=== PATIENT | female | born 1935 | race Two or more races ===

== ENCOUNTER 2019-08-12 19:57 | Inpatient (IN) | payer MEDICARE, OTHER ==
[~2019-08-12] VITALS: Ht 160 cm; Wt 63.5 kg
--- NOTE | 2019-08-12 20:26 | NUR ---
PT CAME IN BIB EMS FROM [facility] C/O SHORTNESS OF BREATH. PER EMS REPORT, PATIENT HAD BG 166 AND DID NOT SPEAK WITH EMS, AND PT WAS ORIGINALLY HERE FOR PSYCH EVAL BUT WAS HYPERVENTILATING. AAOX0. AWAKE AND ALERT TO VERBAL AND PAINFUL STIMLULI. PT IS BREATHING AT 99% OXYGEN
[2019-08-12] MEDS ORDERED: ALPRAZOLAM 0.5 MG TABLET PO ONE (20:30)
[2019-08-12] MEDS ORDERED: ALPRAZOLAM 0.5 MG TABLET ONE (20:31)
--- NOTE | 2019-08-12 21:18 | NUR ---
DAUGHTERS AT BEDSIDE
[2019-08-12] MEDS ORDERED: LORAZEPAM INJ 2 MG/ML VIAL ONE (21:25)
[2019-08-12] MEDS ORDERED: LORAZEPAM INJ 2 MG/ML VIAL IM ONE (21:30)
--- NOTE | 2019-08-12 22:16 | NUR ---
CALLED FOR TELE BED
--- NOTE | 2019-08-12 22:26 | NUR ---
GIVEN BED 307-2
--- NOTE | 2019-08-12 22:36 | NUR ---
BLOOD DRAWN AND SENT TO LAB
[2019-08-12 22:41] LABS: BASOPHILS # (AUTO) 0.1 /CMM (0.0-0.2); BASOPHILS % (AUTO) 0.7 % (0.0-2.0); EOSINOPHILS % (AUTO) 2.2 % (0.0-6.0); HEMATOCRIT 30 % (33-45); LYMPHOCYTES # (AUTO) 2.5 /CMM (0.8-4.8); LYMPHOCYTES % (AUTO) 32.4 % (20.0-44.0); MEAN CORPUSCULAR HGB CONC 33 g/dl (31.0-36.0); MEAN CORPUSCULAR VOLUME 88 fL (82-100); MONOCYTES # (AUTO) 0.8 /CMM (0.1-1.30); MONOCYTES % (AUTO) 10.9 % (2.0-12.0); NEUTROPHILS # (AUTO) 4.1 /CMM (1.8-8.9); NEUTROPHILS % (AUTO) 53.8 % (43.0-81.0); PLATELET COUNT (AUTO) 238 /CMM (150-450); RED BLOOD CELL COUNT(AUTO) 3.42 MIL/uL (4.0-5.2); WHITE BLOOD COUNT (AUTO) 7.7 K/uL (4.3-11.0)
[2019-08-12 22:51] LABS: CALCIUM, SERUM 9.1 mg/dL (8.5-10.1); CREATININE 1.2 mg/dL (0.6-1.3); POTASSIUM 3.9 mmol/L (3.5-5.1)
--- NOTE | 2019-08-12 22:53 | NUR ---
report given to Sherman DELGADO for CHANELLE.
[2019-08-12 23:04] LABS: ALBUMIN 3.1 g/dL (3.4-5.0); BILIRUBIN,DIRECT 0.1 mg/dL (0.0-0.2); BILIRUBIN,TOTAL 0.4 mg/dL (0.2-1.0); TOTAL PROTEIN, SERUM 7.1 g/dL (6.4-8.2)
[2019-08-12 23:25] VITALS: BP 136/66
[2019-08-12] MEDS ORDERED: HYDROCODONE/APAP 5/325MG 1 EACH TABLET PO PRN (23:30)
[2019-08-12] MEDS ORDERED: MAG HYDROX/AL HYDROX/SIMETH 30 ML UDC PO PRN (23:30)
[2019-08-12] MEDS ORDERED: INSULIN REGULAR, HUMAN 100 UNIT/ML 3 ML VIAL SQ PRN (23:30)
[2019-08-12] MEDS ORDERED: DEXTROSE 50%-WATER 50 ML DISP.SYRIN IV PRN (23:30)
[2019-08-12] MEDS ORDERED: Z GUARD REMEDY 2 OZ OINT TP PRN (23:30)
[2019-08-12] MEDS ORDERED: TEMAZEPAM 15 MG CAPSULE PO PRN (23:30)
[2019-08-12] MEDS ORDERED: ONDANSETRON HCL/PF 4 MG/2 ML VIAL IVP PRN (23:30)
[2019-08-12] MEDS ORDERED: MORPHINE SULFATE INJ 2 MG/ML DISP.SYRIN IV PRN (23:30)
[2019-08-12] MEDS ORDERED: ALPRAZOLAM 0.25 MG TABLET PO PRN (23:30)
[2019-08-12] MEDS ORDERED: ACETAMINOPHEN 325 MG TABLET PO PRN (23:30)
[2019-08-12] MEDS ORDERED: MAGNESIUM HYDROXIDE 30 ML UDC PO PRN (23:30)
[2019-08-13] VITALS: BP 136/66
--- NOTE | 2019-08-13 00:35 | NUR ---
RN ADMITTING NOTES Pt ARRIVED TO THE FLOOR VIA ER GURDAMIAN. WITH DAUGHTERS AT BEDSIDE. Pt WAS GIVEN ATIVAN & XANAX IN THE ER DUE TO SEVERE ANXIETY THAT WAS CAUSING HYPERVENTILATION. WHEN Pt ARRIVED TO THE FLOOR Pt WAS ASLEEP AND LETHARGIC; REACTED TO TOUCH & PAIN. PER FAMILY'S REPORT, Pt IS ABLE TO SPEAK & UNDERSTAND IN ENGLISH ONLY, AND HAS EARLY ONSET DEMENTIA. IV ACCESS ON RAC #20G, SL. SAFETY MEASURES IN PLACE. BED LOW, LOCKED, HOB ELEVATED, SIDE RAILS UP, CALL LIGHT AND BEDSIDE TABLE WITHIN REACH. WILL CONTINUE TO MONITOR Pt's CONDITION AND SAFETY THROUGHOUT THE NIGHT.
[2019-08-13] MEDS: FUROSEMIDE 40 MG/4 ML VIAL IV SCH ×2 (01:11→08:27)
--- NOTE | 2019-08-13 01:51 | NUR ---
SANDY NOTES SPOKE WITH GLORIA JASMINE TO CLARIFY ORDER OF MARTINS INSERTION; PLACING INDWELLING MARTINS CATHETER IS OK SINCE Pt IS INCONTINENT AND IS TAKING LASIX. SPOKE WITH Pt's DAUGHTER MARCE ON THE PHONE, SHE GAVE PERMISSION TO ALLOW FOR A MARTINS CATHETER TO BE PLACED. WILL CARRY OUT ORDER. Addendum: 08/13/19 at 0651 by CAIT COX RN COLLECTED URINE SAMPLE
[2019-08-13 04:46] LABS: BASOPHILS % (AUTO) 0.6 % (0.0-2.0); EOSINOPHILS % (AUTO) 3.4 % (0.0-6.0); HEMATOCRIT 32 % (33-45); HEMOGLOBIN 10.8 g/dL (11.5-14.8); LYMPHOCYTES # (AUTO) 2.7 /CMM (0.8-4.8); LYMPHOCYTES % (AUTO) 37.5 % (20.0-44.0); MEAN CORPUSCULAR HGB CONC 34 g/dl (31.0-36.0); MEAN CORPUSCULAR VOLUME 89 fL (82-100); MONOCYTES # (AUTO) 0.8 /CMM (0.1-1.30); NEUTROPHILS # (AUTO) 3.4 /CMM (1.8-8.9); NEUTROPHILS % (AUTO) 47.5 % (43.0-81.0); PLATELET COUNT (AUTO) 232 /CMM (150-450); RED BLOOD CELL COUNT(AUTO) 3.57 MIL/uL (4.0-5.2); WHITE BLOOD COUNT (AUTO) 7.2 K/uL (4.3-11.0)
[2019-08-13 05:07] LABS: ALANINE AMINOTRANSFERASE 13 U/L (12-78); ALBUMIN 2.9 g/dL (3.4-5.0); ALKALINE PHOSPHATASE 32 U/L (46-116); ASPARTATE AMINOTRANSFERASE 12 U/L (15-37); BILIRUBIN,TOTAL 0.5 mg/dL (0.2-1.0); CALCIUM, SERUM 8.8 mg/dL (8.5-10.1); CARBON DIOXIDE 26 mmol/L (21-32); CHLORIDE 105 mmol/L (98-107); CREATININE 1.1 mg/dL (0.6-1.3); GLUCOSE 99 mg/dL (74-106); MAGNESIUM 1.6 mg/dL (1.8-2.4); PHOSPHORUS 4.5 mg/dL (2.5-4.9); POTASSIUM 3.3 mmol/L (3.5-5.1); SODIUM SERUM 139 mmol/L (136-145); TOTAL PROTEIN, SERUM 6.7 g/dL (6.4-8.2); UREA NITROGEN, BLOOD 20 mg/dL (7-18)
[2019-08-13 05:14] LABS: CHOLESTEROL 126 mg/dL (<200); HDL CHOLESTEROL 35 mg/dL (40-60); LDL 76 mg/dL (0-99); THYROID STIMULATING HORMONE 15.635 uIU/mL (0.358-3.74); TRIGLYCERIDES 99 mg/dL (30-150)
--- NOTE | 2019-08-13 06:51 | NUR ---
RN CLOSING NOTES NO SIGNIFICANT CHANGES IN Pt's CONDITION. NO S/S OF ACUTE DISTRESS OR SOB NOTED DURING THE NIGHT. ALL NEEDS MET AND ATTENDED TO. SAFETY MEASURES IN PLACE. Pt IS RESTING IN BED, WITH UNLABORED RESPIRATIONS & EQUAL CHEST RISE AND FALL. ENDORSED TO DAYSHIFT RN FOR Pt's CHANELLE.
[2019-08-13] MEDS ORDERED: PANTOPRAZOLE 40 MG TABLET.DR PO SCH (07:30)
--- NOTE | 2019-08-13 07:30 | NUR ---
MS/RN OPENING NOTE Patient is resting in bed, A/Ox1, lethargic, arousable to pain. Breathing is even and unlabored, no SOB noted, saturating 100% on RA. Tele monitor A-fib 54, delgado catheter noted, IV line in the RAc #20 s/l is clean and patent. Bed is in lowest position, side rails x3 in upright position, call light is within reach, safety fall and aspiration precautions enforced. Will continue with plan of care.
[2019-08-13] MEDS ORDERED: LEVO112T5 PO (07:32)
[2019-08-13] MEDS ORDERED: FURO-145 PO (07:32)
[2019-08-13] MEDS ORDERED: DOCU-141 PO (07:32)
[2019-08-13] MEDS ORDERED: SENN-168 PO (07:32)
[2019-08-13] MEDS ORDERED: APIX2.5T PO (07:32)
[2019-08-13] MEDS ORDERED: ATOR10TA PO (07:32)
[2019-08-13] MEDS ORDERED: CALC-1274 PO (07:32)
[2019-08-13] MEDS ORDERED: DEXT15DR6 EACHEYE (07:32)
[2019-08-13] MEDS ORDERED: CYCL5.5D3 OP (07:32)
[2019-08-13] MEDS ORDERED: MIRT15TA7 PO (07:32)
[2019-08-13] MEDS ORDERED: RISP0.5T5 PO (07:32)
[2019-08-13] MEDS ORDERED: DIGO125T PO (07:32)
[2019-08-13] MEDS ORDERED: MAGN400T8 PO (07:32)
[2019-08-13] MEDS ORDERED: BISA-79 PO (07:32)
[2019-08-13] MEDS ORDERED: METF-442 PO (07:32)
[2019-08-13] MEDS ORDERED: METO25TA6 PO (07:32)
[2019-08-13] MEDS ORDERED: SPIR25TA6 PO (07:32)
[2019-08-13] MEDS ORDERED: ASCO500C18 PO (07:32)
[2019-08-13] MEDS ORDERED: NA P133E RC (07:32)
[2019-08-13] MEDS ORDERED: DIVA125C2 PO ×2 (07:32)
[2019-08-13] MEDS ORDERED: CRAN425C6 PO (07:32)
[2019-08-13] MEDS ORDERED: NUT.237L28 PO (07:32)
[2019-08-13] MEDS ORDERED: ACET325C7 PO (07:32)
[2019-08-13 08:00] VITALS: BP 100/54
[2019-08-13] MEDS: BLOOD SUGAR DIAGNOSTIC 1 EACH STRIP IN SCH ×2 (08:13→12:23)
[2019-08-13] MEDS ORDERED: CALC-7 PO (08:15)
[2019-08-13] MEDS ORDERED: MAGN400O6 PO (08:15)
[2019-08-13] MEDS ORDERED: ACET-2605 PO (08:15)
[2019-08-13] MEDS ORDERED: ACET-868 PO (08:15)
[2019-08-13] MEDS ORDERED: BISA10SU11 RC (08:15)
[2019-08-13] MEDS ORDERED: RISP0.2515 PO (08:15)
[2019-08-13] MEDS ORDERED: CYCL30DR EACHEYE (08:15)
[2019-08-13] MEDS ORDERED: SENN-291 PO (08:15)
[2019-08-13] MEDS ORDERED: GLUC1KIT IM (08:15)
[2019-08-13] MEDS ORDERED: MAG30ORA PO (08:15)
[2019-08-13] MEDS ORDERED: POLY15DR40 EACHEYE (08:15)
[2019-08-13] MEDS: POTASSIUM CHLORIDE 20 MEQ TAB.PRT.SR PO SCH ×2 (08:27→09:41)
[2019-08-13] MEDS: Magnesium 1GM/D5W 100ML PREMIX 100 ML IV SCH ×2 (08:28→09:40)
[2019-08-13] MEDS ORDERED: ENOXAPARIN SODIUM 40 MG/0.4 ML DISP.SYRIN SQ SCH (09:00)
[2019-08-13 09:54] LABS: APPEARANCE,URINE CLEAR (CLEAR); BILIRUBIN,URINE NEGATIVE (NEGATIVE); BLOOD, URINE TRACE-INTA Ery/uL (NEGATIVE); KETONES,URINE NEGATIVE (NEGATIVE); LEUKOCYTE ESTERASE ,URINE NEGATIVE (NEGATIVE); NITRITE, URINE NEGATIVE (NEGATIVE); PROTEIN,URINE NEGATIVE (NEGATIVE); UGLUCOSE NEGATIVE (NEGATIVE); UROBILINOGEN,URINE 0.2 EU/dL (0.2)
[2019-08-13 10:03] LABS: COLOR,URINE STRAW (YELLOW)
[2019-08-13 10:16] LABS: BACTERIA,URINE Few /HPF (None Seen); WBC,URINE 0-2 /HPF (0-3)
[2019-08-13 10:17] LABS: SQUAMOUS EPITHELIAL CELL,UR Rare /HPF (None Seen)
[2019-08-13] MEDS: POTASSIUM CL. PREMIX PERIPHER. 50 ML IV SCH ×2 (11:27→12:23)
[2019-08-13] MEDS ORDERED: FURO-144 PO (13:58)
--- NOTE | 2019-08-13 16:17 | NUR ---
MS/BRUSH HOLDER INSPECTOR NOTE Patient is medically cleared for discharge to [facility] per Dr. Bustillos. A/O x1, showing no signs of acute distress or SOB, saturating 100% on RA. Vital signs 127/56, IA 79, T 98.4, RR 18. Skin assessed. Skin is intact. IV removed, ID band removed. Patient does not have any belongings. Report given to Kendra DELGADO in [facility]. Patient kept clean and dry, all patient needs met, all due meds given. Family has been notified of discharge to [facility].
== END 2019-08-13 16:10 | DRG 291 ==
LOC: ER 20:05 → TELE 22:34 → MED 08-13 10:11
PROVIDERS: ADMIT Nurse Practitioner Acute Care; ATTEND Family Medicine
DX: I11.0 Hypertensive heart disease with heart failure (principal); G93.41 Metabolic encephalopathy; N17.0 Acute kidney failure with tubular necrosis; E44.1 Mild protein-calorie malnutrition; F03.91 Unspecified dementia, unspecified severity, with behavioral disturbance; E03.9 Hypothyroidism, unspecified; E83.42 Hypomagnesemia; E87.6 Hypokalemia; Z66 Do not resuscitate; Z95.1 Presence of aortocoronary bypass graft; I25.10 Atherosclerotic heart disease of native coronary artery without angina pectoris; E88.09 Other disorders of plasma-protein metabolism, not elsewhere classified; D63.8 Anemia in other chronic diseases classified elsewhere; I48.91 Unspecified atrial fibrillation; Z68.24 Body mass index [BMI] 24.0-24.9, adult; Z79.84 Long term (current) use of oral hypoglycemic drugs; F41.9 Anxiety disorder, unspecified; E11.9 Type 2 diabetes mellitus without complications; I50.33 Acute on chronic diastolic (congestive) heart failure
CPT/HCPCS: 36415; 71045-TC; 80048-TC; 80053-TC; 80061-TC; 80076-TC; 81000-TC; 82962-TC; 83735-TC; 83880; 84100-TC; 84443-TC; 84484-TC; 85025-TC; 85730-TC; 87081-TC; 87086-TC; 93307-TC; 97112-TC; 97530-TC; G0378; J1650; J1815; J1940; J2060; J3475; J3480; J7050

== ENCOUNTER 2019-08-13 16:45 | Inpatient (IN) | payer MEDICARE, OTHER ==
[~2019-08-13] VITALS: Ht 157.5 cm; Wt 61.7 kg
--- NOTE | 2019-08-13 16:00 | NUR ---
NURSING ADMISSION NOTE: PT WAS ADMITTED TODAY FROM [facility] AT 1600. PT WAS BROUGHT TO THE UNIT VIA HOSPITAL BED. PT IS ON 5150 GD, PER HOLD "PSYCH EVALUATION REQUESTED FOR THIS 83 Y/O FEMALE WHO WAS SENT FROM [facility] FOR AGITATION AND ANXIETY. SHE HAS A H/O MENTAL HEALTH ISSUES. WHEN INTERVIEW FACE TO FACE AT BEDSIDE, CORNEL WAS LETHARGIC AND ANXIOUS, PER WELDING MACHINE OPERATOR [employer] #[id number], PT ADMITS TO BEING DEPRESSED AND ANXIOUS. SHE IS TRYING TO TAKE OUT HER IV. HER DAUGHTER CHRISTIAN REPORTS THAT HER MOTHER HAS BEEN DEPRESSED SINCE HER 8 MONTHS AGO. SHE HAS BEEN TAKING RISPERDAL AND DEPAKOTE BUT HER DAUGHTER REPORTS THAT THE MEDICATION IS NOT WORKING AND THAT IT MAKES HER FORGETFUL AND AGITATED. SHE WAS AGITATED WITH STAFF AT [facility] AND BECAME VIOLENT AND UNMANAGEABLE AT THE FACILITY. SHE IS NO ABLE TO SIGN IN VOLUNTARY". UPON FACE TO FACE, PT IS A&OX1, CONFUSED, DISORIENTED, DISORGANIZED, CALM, COOPERATIVE, SLEEPING BUT EASILY AROUSABLE, DENIES SI/HI AT THIS TIME. NO S/S OF ANY DISTRESS NOTED. NO C/O PAIN OR ANY DISCOMFORT. VS: 130/64, 98, 95%RA, 18, 97.8, 0/10 PAIN. SKIN INTACT EXCEPT FOR A BRUISE TO LEFT HAND, PICTURES TAKEN AND PLACED IN THE CHART. DR ACUÑA HAS BEEN NOTIFIED OF ADMISSION WITH ADMISSION ORDERS GIVEN WELL. DR. PRICE HAS BEEN NOTIFIED OF ADMISSION AND MED RECON. WILL CONTINUE TO MONITOR Q15 MINS FOR SAFETY AND BEHAVIOR.
[~2019-08-13 16:45] MED LIST: ACET-2605 PO; ACET-868 PO; ACET325C7 PO; APIX2.5T PO; ASCO500C18 PO; ATOR10TA PO; BISA-79 PO; BISA10SU11 RC; CALC-1274 PO; CALC-7 PO; CRAN425C6 PO; CYCL30DR EACHEYE; CYCL5.5D3 OP; DEXT15DR6 EACHEYE; DIGO125T PO; DIVA125C2 PO; DOCU-141 PO; FURO-144 PO; FURO-145 PO; GLUC1KIT IM; LEVO112T5 PO; MAG30ORA PO; MAGN400O6 PO; MAGN400T8 PO; METF-442 PO; METO25TA6 PO; MIRT15TA7 PO; NA P133E RC; NUT.237L28 PO; POLY15DR40 EACHEYE; RISP0.2515 PO; RISP0.5T5 PO; SENN-168 PO; SENN-291 PO; SPIR25TA6 PO
[2019-08-13] MEDS ORDERED: MAGNESIUM HYDROXIDE 30 ML UDC PO PRN ×2 (17:30→21:00)
[2019-08-13] MEDS ORDERED: ZOLPIDEM TARTRATE 5 MG TABLET PO PRN (17:30)
[2019-08-13] MEDS ORDERED: DEXTROSE 50%-WATER 50 ML DISP.SYRIN IV PRN (17:30)
[2019-08-13] MEDS ORDERED: MAG HYDROX/AL HYDROX/SIMETH 30 ML UDC PO PRN (17:30)
[2019-08-13] MEDS ORDERED: BLOOD SUGAR DIAGNOSTIC 1 EACH STRIP IN ONE (17:30)
[2019-08-13] MEDS: BLOOD SUGAR DIAGNOSTIC 1 EACH STRIP IN SCH ×2 (17:51→22:38)
[2019-08-13 20:00] VITALS: BP 115/63
--- NOTE | 2019-08-13 20:00 | NUR ---
PATIENT RESTING IN BED COMFORTABLY,EASILY AGITATED , PARANOID PT.IS COOPERATIVE AT THIS TIME, DEPRESSED, . NO AGITATION NOTED.ENCOURAGED FOR VERBALIZATION OF FEELINGS. SAFETY PRECAUTIONS IMPLEMENTED. WILL CONTINUE TO MONITOR Q15MIN ROUNDS FOR SAFETY AND BEHAVIOR.
[2019-08-13] MEDS ORDERED: NA PHOS,M-B/NA PHOS,DI-BA 1 EA ENEMA RC PRN (21:00)
[2019-08-13] MEDS ORDERED: BISACODYL SUPP (10 MG) 10 MG/SUPP.RECT SUPP.RECT RC PRN (21:00)
[2019-08-13] MEDS ORDERED: SENNOSIDES/DOCUSATE SODIUM 1 UDTAB TABLET PO SCH (22:00)
[2019-08-13] MEDS: ATORVASTATIN 10 MG TABLET PO SCH (22:13)
[2019-08-13 23:06] VITALS: BP 115/69
--- NOTE | 2019-08-14 07:21 | NUR ---
RN NOTES : PT. RESETING IN HER BED, NO ACUTE DISTRESS NOTED , DENIED ANY DISCOMFORT AT THIS TIME , IN DURING SHIFT NO BEHAVIOR PROBLEMS NOTED , ENDORSE TO DAY NURSE FOR CONTINUIYT OF CARE.
[2019-08-14] MEDS ORDERED: Z GUARD REMEDY 2 OZ OINT TP PRN (07:30)
[2019-08-14 07:59] LABS: BILIRUBIN,TOTAL 0.6 mg/dL (0.2-1.0); CALCIUM, SERUM 8.8 mg/dL (8.5-10.1); CREATININE 0.9 mg/dL (0.6-1.3); POTASSIUM 3.5 mmol/L (3.5-5.1); TOTAL PROTEIN, SERUM 7.1 g/dL (6.4-8.2)
[2019-08-14 08:00] VITALS: BP 100/57
[2019-08-14 08:07] LABS: CHOLESTEROL 143 mg/dL (<200); HDL CHOLESTEROL 35 mg/dL (40-60); LDL 90 mg/dL (0-99); TRIGLYCERIDES 124 mg/dL (30-150)
[2019-08-14] MEDS: BLOOD SUGAR DIAGNOSTIC 1 EACH STRIP IN SCH ×4 (08:09→22:05)
--- NOTE | 2019-08-14 08:09 | NUR ---
GPS/RN ACCUCHECK WITH WX=223. NO INSULIN COVERAGE GIVEN PT NOT EATING.
[2019-08-14] MEDS ORDERED: POLYVINYL ALCOHOL 15 ML BOTTLE EACHEYE PRN (08:30)
[2019-08-14] MEDS: FUROSEMIDE 20 MG TABLET PO SCH (08:55)
[2019-08-14] MEDS: SPIRONOLACTONE 25 MG TABLET PO SCH (08:55)
[2019-08-14] MEDS: METOPROLOL TARTRATE 25 MG TABLET PO SCH ×2 (08:56→17:00)
[2019-08-14] MEDS ORDERED: Z GUARD REMEDY 2 OZ OINT TP SCH (09:00)
[2019-08-14] MEDS ORDERED: Medication Not On Formulary EA (Cyclosporine (Restasis) 1 DROP) EACHEYE SCH (09:00)
[2019-08-14] MEDS ORDERED: Medication Not On Formulary EA (Cranberry Extract (Cranberry) 425 MG) PO SCH (09:00)
[2019-08-14] MEDS: GLUCERNA SHAKE 237 ML CAN PO SCH (09:00)
--- NOTE | 2019-08-14 09:09 | NUR ---
FACILITY CONTACT: SW contacted [facility] Address: [address] [place] [address] and spoke with Catie, clinical project coordinator who stated pt is able to return once stable for discharge.
[2019-08-14] MEDS: DIGOXIN 0.125 MG TABLET PO SCH (09:24)
[2019-08-14] MEDS: ACETAMINOPHEN 325 MG TABLET PO SCH (09:24)
[2019-08-14] MEDS: CALCIUM CARB 250MG /VITAMIN D 1 UDTAB PO SCH (09:24)
[2019-08-14] MEDS: LEVOTHYROXINE SODIUM 112 MCG TABLET PO SCH (09:24)
[2019-08-14] MEDS: DOCUSATE SODIUM 100 MG CAPSULE PO SCH ×2 (09:24→17:22)
[2019-08-14] MEDS: LORAZEPAM 0.5 MG TABLET PO PRN ×3 (09:25→18:51)
[2019-08-14] MEDS: ASCORBIC ACID 500 MG TABLET PO SCH (09:25)
[2019-08-14] MEDS: Z GUARD REMEDY 2 OZ OINT TP SCH (09:25)
[2019-08-14] MEDS: MAGNESIUM OXIDE 400 MG TABLET PO SCH ×2 (09:25→17:22)
[2019-08-14] MEDS: POLYVINYL ALCOHOL 15 ML BOTTLE EACHEYE SCH ×3 (09:26→17:19)
[2019-08-14] MEDS: APIXABAN 2.5 MG TABLET PO SCH ×2 (09:27→17:23)
--- NOTE | 2019-08-14 09:35 | NUR ---
FAMILY CONTACT: TOMMY contacted pts daughter Chante [phone] for collateral information, discharge and treatment planning. Daughter stated that pt has been living at [facility] Address: [address] [place] [address] for the past 8 months after pts . Daughter states that pt was hospitalized due to an infection when and she not able to leave the hospital. Per daughter, pt became agitated and her Dementia was exacerbated by this event. Daughter states that pt was then transferred to the SNF and pt declined rapidly. She states that while at the SNF pt has been given Risperdal and Depakote prasanna pt has deteriorated drastically, she states that pt stopped talking, walking, and is more agitated. Daughter is concerned and is requesting MD call her to discuss medications. SW informed her that she will inform psychiatrist.
[2019-08-14] MEDS ORDERED: SENNOSIDES 8.6 MG TABLET PO SCH (10:00)
--- NOTE | 2019-08-14 11:45 | NUR ---
INITIAL DISCHARGE PLAN: Per Daughter Chante [phone] she wishes for pt to return to [facility] Address: [address] [place] [address] . TOMMY contacted Catie curriculum development coordinator who confirmed pt is able to return once stable for discharge. TOMMY will help form a safe and proper discharge in collaboration with .
--- NOTE | 2019-08-14 15:05 | NUR ---
GROUP NOTE: SW encouraged pt to attend group on this present day discussing "discharge planning." Pt was asleep and was not easily aroused. Pt was restless all day and was given medication for her anxiety.
[2019-08-14 16:00] VITALS: BP 110/63
--- NOTE | 2019-08-14 16:01 | NUR ---
GPS/RN NO INSULIN COVERAGE FOR LUNCH PT REFUSED TO EAT.
--- NOTE | 2019-08-14 18:51 | NUR ---
GPS/RN PT GIVEN ATIVAN 0.5MG PO FOR AGITATION
--- NOTE | 2019-08-14 19:59 | NUR ---
GPS/BRASS FINISHER NOTES: NOTICED PT. GRIMACES IN PAIN ON TOUCH TO RIGHT HAND. FAMILY AT BEDSIDE AND REQUEST FOR XRAY. DR. MURILLO. WAITING ON RETURN CALL.
--- NOTE | 2019-08-14 20:00 | NUR ---
GPS/DECKHAND SPONGE BOAT NOTES: DR. PARIKH RETURNED CALL AND TO PLACED ORDER FOR XRAY TO RIGHT HAND. ORDER NOTED AND CARRIED OUT.
[2019-08-14 20:22] VITALS: BP 103/80
--- NOTE | 2019-08-14 21:30 | NUR ---
GPS/NURSING NOTES: PT. IN BED RESTING. NO DISTRESS OR AGITATION NOTED. RESTLESS AT TIMES. REDIRECTED. COOPERATIVE. SAFETY ENVIRONMENT OBSERVED AT ALL TIMES. WILL CONTINUE TO MONITOR Q 15 MIN FOR SAFETY AND BEHAVIOR.
[2019-08-14] MEDS: SENNOSIDES 8.6 MG TABLET PO SCH (22:05)
[2019-08-14] MEDS: QUETIAPINE FUMARATE 25 MG TABLET PO SCH (22:05)
[2019-08-14] MEDS: ATORVASTATIN 10 MG TABLET PO SCH (22:05)
[2019-08-14] MEDS: INSULIN REGULAR, HUMAN 100 UNIT/ML 3 ML VIAL SQ PRN (22:07)
[2019-08-15 08:00] VITALS: BP 101/60
[2019-08-15] MEDS: BLOOD SUGAR DIAGNOSTIC 1 EACH STRIP IN SCH ×4 (08:01→21:50)
[2019-08-15] MEDS: LEVOTHYROXINE SODIUM 112 MCG TABLET PO SCH (08:03)
[2019-08-15] MEDS: DOCUSATE SODIUM 100 MG CAPSULE PO SCH ×2 (08:03→16:41)
[2019-08-15] MEDS: ASCORBIC ACID 500 MG TABLET PO SCH (08:05)
[2019-08-15] MEDS: CALCIUM CARB 250MG /VITAMIN D 1 UDTAB PO SCH (08:05)
[2019-08-15] MEDS: LORAZEPAM 0.5 MG TABLET PO PRN ×2 (08:05→22:56)
[2019-08-15] MEDS: APIXABAN 2.5 MG TABLET PO SCH ×2 (08:05→16:42)
[2019-08-15] MEDS: MAGNESIUM OXIDE 400 MG TABLET PO SCH ×2 (08:05→16:41)
[2019-08-15] MEDS: DIGOXIN 0.125 MG TABLET PO SCH (08:05)
[2019-08-15] MEDS: FUROSEMIDE 20 MG TABLET PO SCH (08:06)
[2019-08-15] MEDS: SPIRONOLACTONE 25 MG TABLET PO SCH (08:06)
[2019-08-15] MEDS: POLYVINYL ALCOHOL 15 ML BOTTLE EACHEYE SCH ×3 (08:06→16:39)
[2019-08-15] MEDS: ESCITALOPRAM OXALATE (10 MG) 10 MG TABLET PO SCH (08:08)
[2019-08-15] MEDS: METOPROLOL TARTRATE 25 MG TABLET PO SCH ×2 (08:08→16:39)
[2019-08-15] MEDS: ACETAMINOPHEN 325 MG TABLET PO SCH (08:33)
[2019-08-15] MEDS: Z GUARD REMEDY 2 OZ OINT TP SCH (09:39)
--- NOTE | 2019-08-15 12:45 | NUR ---
GPS/RN DNR ORDERS RECEIVED FROM DR. KIRAN WITNESSED BY ANJALI SIMPSON RN. MADE AWARE OF ABNORMAL ECG. NEW ORDERS RECEIVED AND CARRIED OUT
[2019-08-15] MEDS: INSULIN REGULAR, HUMAN 100 UNIT/ML 3 ML VIAL SQ PRN ×2 (12:56→21:55)
[2019-08-15] MEDS: GLUCERNA SHAKE 237 ML CAN PO SCH (13:18)
[2019-08-15 16:00] VITALS: BP 103/64
--- NOTE | 2019-08-15 19:30 | NUR ---
GPS OPENING NOTE: PATIENT IN BED RESTING COMFORTABLY, IN NO APPARENT DISTRESS NOTED. ALERT AND ORIENTED X1, PATIENT REMAINS CONFUSED AND ANXIOUS. REORIENTATION PROVIDED. SAFETY PRECAUTIONS IMPLEMENTED. BED ALARM ON AND IN LOCKED POSITION. WILL CONTINUE TO MONITOR FOR PATIENT'S SAFETY.
[2019-08-15 20:00] VITALS: BP_SYST 130; BP_SYST 138; BP_DIAS 69; BP_DIAS 91
[2019-08-15] MEDS: SENNOSIDES 8.6 MG TABLET PO SCH (21:29)
[2019-08-15] MEDS: QUETIAPINE FUMARATE 25 MG TABLET PO SCH (21:29)
[2019-08-15] MEDS: ATORVASTATIN 10 MG TABLET PO SCH (21:29)
--- NOTE | 2019-08-15 22:56 | NUR ---
GPS NURSING NOTE: AGITATION ATIVAN 0.5MG PO GIVEN FOR AGITATION. WILL CONTINUE TO MONITOR FOR PT'S SAFETY.
--- NOTE | 2019-08-16 06:18 | NUR ---
GPS RN CLOSING NOTE: PATIENT IN BED ASLEEP, AROUSES EASILY. NO ACUTE DISTRESS NOTED. PATIENT REMAINS CONFUSED. REORIENTATION PROVIDED. NO AGITATION NOTED. SAFETY PRECAUTIONS IMPLEMENTED. BED ALARM ON AND IN LOCKED POSITION. WILL CONTINUE TO MONITOR FOR PT'S SAFETY.
--- NOTE | 2019-08-16 06:19 | NUR ---
GPS RN CLOSING NOTE: PATIENT IN BED ASLEEP, AROUSES EASILY. NO ACUTE DISTRESS NOTED. DENIES PAIN OR DISCOMFORT. NO AGITATION NOTED. DENIES SI/HI/AVH AT THIS TIME. SAFETY PRECAUTIONS IMPLEMENTED. BED ALARM ON AND IN LOCKED POSITION. WILL CONTINUE TO MONITOR FOR PT'S SAFETY.
[2019-08-16 08:00] VITALS: BP 139/80
[2019-08-16] MEDS: BLOOD SUGAR DIAGNOSTIC 1 EACH STRIP IN SCH ×4 (08:21→21:16)
[2019-08-16] MEDS: MAGNESIUM OXIDE 400 MG TABLET PO SCH ×2 (08:22→17:23)
[2019-08-16] MEDS: LEVOTHYROXINE SODIUM 112 MCG TABLET PO SCH (08:22)
[2019-08-16] MEDS: ESCITALOPRAM OXALATE (10 MG) 10 MG TABLET PO SCH (08:22)
[2019-08-16] MEDS: LORAZEPAM 0.5 MG TABLET PO PRN ×2 (08:22→22:30)
[2019-08-16] MEDS: DOCUSATE SODIUM 100 MG CAPSULE PO SCH ×2 (08:22→17:22)
[2019-08-16] MEDS: CALCIUM CARB 250MG /VITAMIN D 1 UDTAB PO SCH (08:23)
[2019-08-16] MEDS: FUROSEMIDE 20 MG TABLET PO SCH (08:23)
[2019-08-16] MEDS: ASCORBIC ACID 500 MG TABLET PO SCH (08:23)
[2019-08-16] MEDS: METOPROLOL TARTRATE 25 MG TABLET PO SCH ×2 (08:23→17:22)
[2019-08-16] MEDS: SPIRONOLACTONE 25 MG TABLET PO SCH (08:23)
[2019-08-16] MEDS: ACETAMINOPHEN 325 MG TABLET PO SCH (08:23)
[2019-08-16] MEDS: APIXABAN 2.5 MG TABLET PO SCH ×2 (08:25→17:30)
[2019-08-16] MEDS: GLUCERNA SHAKE 237 ML CAN PO SCH (08:25)
[2019-08-16] MEDS: POLYVINYL ALCOHOL 15 ML BOTTLE EACHEYE SCH ×3 (08:26→17:19)
[2019-08-16] MEDS: Z GUARD REMEDY 2 OZ OINT TP SCH (08:26)
[2019-08-16] MEDS: [UNRECOGNIZED DRUG - OTHER] TP SCH (13:01)
[2019-08-16 16:02] VITALS: BP 137/56
[2019-08-16 16:33] LABS: BASOPHILS % (AUTO) 0.2 % (0.0-2.0); EOSINOPHILS % (AUTO) 0.1 % (0.0-6.0); HEMATOCRIT 30 % (33-45); LYMPHOCYTES # (AUTO) 1.1 /CMM (0.8-4.8); LYMPHOCYTES % (AUTO) 10.6 % (20.0-44.0); MEAN CORPUSCULAR HGB CONC 33 g/dl (31.0-36.0); MEAN CORPUSCULAR VOLUME 89 fL (82-100); MONOCYTES # (AUTO) 1.3 /CMM (0.1-1.30); MONOCYTES % (AUTO) 12.3 % (2.0-12.0); NEUTROPHILS # (AUTO) 8.3 /CMM (1.8-8.9); NEUTROPHILS % (AUTO) 76.8 % (43.0-81.0); PLATELET COUNT (AUTO) 213 /CMM (150-450); RED BLOOD CELL COUNT(AUTO) 3.41 MIL/uL (4.0-5.2); WHITE BLOOD COUNT (AUTO) 10.8 K/uL (4.3-11.0)
[2019-08-16 17:02] LABS: ALBUMIN 2.7 g/dL (3.4-5.0); BILIRUBIN,TOTAL 0.6 mg/dL (0.2-1.0); CALCIUM, SERUM 9.1 mg/dL (8.5-10.1); CREATININE 1.1 mg/dL (0.6-1.3); POTASSIUM 4.1 mmol/L (3.5-5.1); TOTAL PROTEIN, SERUM 7.2 g/dL (6.4-8.2)
[2019-08-16] MEDS: INSULIN REGULAR, HUMAN 100 UNIT/ML 3 ML VIAL SQ PRN (17:42)
--- NOTE | 2019-08-16 19:30 | NUR ---
GPS OPENING NOTE: PATIENT IN BED RESTING COMFORTABLY, IN NO APPARENT DISTRESS NOTED. ALERT AND ORIENTED X1, PATIENT REMAINS CONFUSED, ANXIOUS. REORIENTATION PROVIDED. REPOSITIONED FOR COMFORT. SAFETY PRECAUTIONS IMPLEMENTED. BED ALARM ON AND IN LOCKED POSITION. WILL CONTINUE TO MONITOR FOR PATIENT'S SAFETY.
[2019-08-16 20:00] VITALS: BP 118/65
[2019-08-16 20:04] VITALS: BP 118/65
[2019-08-16] MEDS: QUETIAPINE FUMARATE 25 MG TABLET PO SCH (21:07)
[2019-08-16] MEDS: SENNOSIDES 8.6 MG TABLET PO SCH (21:07)
[2019-08-16] MEDS: ATORVASTATIN 10 MG TABLET PO SCH (21:07)
--- NOTE | 2019-08-16 22:30 | NUR ---
GPS NURSING NOTE: ANXIETY PATIENT IS ANXIOUS AND RESTLESS. ATIVAN 0.5MG PO GIVEN. WILL CONTINUE TO MONITOR FOR PT'S SAFETY.
[2019-08-17] MEDS: ACETAMINOPHEN 325 MG TABLET PO PRN (02:04)
[2019-08-17] MEDS: BLOOD SUGAR DIAGNOSTIC 1 EACH STRIP IN SCH ×4 (07:30→22:47)
[2019-08-17 08:00] VITALS: BP 95/55
[2019-08-17] MEDS: METOPROLOL TARTRATE 25 MG TABLET PO SCH ×2 (09:00→17:49)
[2019-08-17] MEDS: SPIRONOLACTONE 25 MG TABLET PO SCH (09:12)
[2019-08-17] MEDS: DOCUSATE SODIUM 100 MG CAPSULE PO SCH ×2 (09:12→17:49)
[2019-08-17] MEDS: ASCORBIC ACID 500 MG TABLET PO SCH (09:12)
[2019-08-17] MEDS: FUROSEMIDE 20 MG TABLET PO SCH (09:12)
[2019-08-17] MEDS: DIGOXIN 0.125 MG TABLET PO SCH (09:14)
[2019-08-17] MEDS: ESCITALOPRAM OXALATE (10 MG) 10 MG TABLET PO SCH (09:15)
[2019-08-17] MEDS: CALCIUM CARB 250MG /VITAMIN D 1 UDTAB PO SCH (09:15)
[2019-08-17] MEDS: ACETAMINOPHEN 325 MG TABLET PO SCH (09:15)
[2019-08-17] MEDS: APIXABAN 2.5 MG TABLET PO SCH ×2 (09:17→17:50)
[2019-08-17] MEDS: GLUCERNA SHAKE 237 ML CAN PO SCH (09:18)
[2019-08-17] MEDS: LEVOTHYROXINE SODIUM 112 MCG TABLET PO SCH (09:18)
[2019-08-17] MEDS: POLYVINYL ALCOHOL 15 ML BOTTLE EACHEYE SCH ×3 (09:19→17:50)
[2019-08-17] MEDS: Z GUARD REMEDY 2 OZ OINT TP SCH (09:20)
[2019-08-17] MEDS: [UNRECOGNIZED DRUG - OTHER] TP SCH (09:20)
[2019-08-17] MEDS: MAGNESIUM OXIDE 400 MG TABLET PO SCH ×2 (09:25→17:50)
[2019-08-17 16:00] VITALS: BP 127/63
--- NOTE | 2019-08-17 18:24 | NUR ---
R-CO: CALL DR ROJAS'S OFFICE LEFT A MESSAGE THAT SHE HAS A CONSULT REGARDING PRIYA Sheffield
[2019-08-17 20:10] VITALS: BP 129/69
[2019-08-17] MEDS: ATORVASTATIN 10 MG TABLET PO SCH (22:05)
[2019-08-17] MEDS: SENNOSIDES 8.6 MG TABLET PO SCH (22:06)
[2019-08-17] MEDS: QUETIAPINE FUMARATE 25 MG TABLET PO SCH (22:06)
[2019-08-17] MEDS: LORAZEPAM 0.5 MG TABLET PO PRN (22:38)
[2019-08-17] MEDS: INSULIN REGULAR, HUMAN 100 UNIT/ML 3 ML VIAL SQ PRN (23:10)
--- NOTE | 2019-08-18 04:46 | NUR ---
SKIN CHEK DONE, NO NEW SKIN PROBLEMS NOTED. PICTURES TAKEN AND PLACED IN CHART. PT CALM AND COOPERATIVE. WILL CONTINUE TO MONITOR AND ENDORSE TO AM NURSE.
[2019-08-18] MEDS: BLOOD SUGAR DIAGNOSTIC 1 EACH STRIP IN SCH ×4 (07:23→22:35)
[2019-08-18 08:00] VITALS: BP 118/62
[2019-08-18] MEDS: DIGOXIN 0.125 MG TABLET PO SCH (08:20)
[2019-08-18] MEDS: SPIRONOLACTONE 25 MG TABLET PO SCH (08:20)
[2019-08-18] MEDS: ESCITALOPRAM OXALATE (10 MG) 10 MG TABLET PO SCH (08:20)
[2019-08-18] MEDS: FUROSEMIDE 20 MG TABLET PO SCH (08:20)
[2019-08-18] MEDS: ACETAMINOPHEN 325 MG TABLET PO SCH (08:20)
[2019-08-18] MEDS: ASCORBIC ACID 500 MG TABLET PO SCH (08:21)
[2019-08-18] MEDS: METOPROLOL TARTRATE 25 MG TABLET PO SCH ×2 (08:21→16:23)
[2019-08-18] MEDS: CALCIUM CARB 250MG /VITAMIN D 1 UDTAB PO SCH (08:21)
[2019-08-18] MEDS: MAGNESIUM OXIDE 400 MG TABLET PO SCH ×2 (08:21→16:23)
[2019-08-18] MEDS: DOCUSATE SODIUM 100 MG CAPSULE PO SCH ×2 (08:21→16:23)
[2019-08-18] MEDS: LEVOTHYROXINE SODIUM 112 MCG TABLET PO SCH (08:21)
[2019-08-18] MEDS: GLUCERNA SHAKE 237 ML CAN PO SCH (08:22)
[2019-08-18] MEDS: APIXABAN 2.5 MG TABLET PO SCH ×2 (08:22→16:23)
[2019-08-18] MEDS: POLYVINYL ALCOHOL 15 ML BOTTLE EACHEYE SCH ×3 (09:23→16:32)
[2019-08-18] MEDS: [UNRECOGNIZED DRUG - OTHER] TP SCH (09:23)
[2019-08-18] MEDS: Z GUARD REMEDY 2 OZ OINT TP SCH (09:23)
--- NOTE | 2019-08-18 09:50 | NUR ---
GPS NURSING NOTE: PATIENT IS AOX1. UNABLE TO VERBALIZE. RESTING IN BED. REGULAR RATE AND RHYTHM FOR RESPIRATIONS. NO SIGNS OF DISTRESS NOTED. NEEDS ATTENDED TO. ATE 25% OF BREAKFAST AND IS MEDICATION COMPLIANT. SAFETY PRECAUTIONS ASSESSED. WILL CONTINUE TO MONITOR Q15 FOR SAFETY, MOOD AND BEHAVIOR.
--- NOTE | 2019-08-18 15:23 | NUR ---
GROUP NOTE: SW encouraged pt to attend group on this present day discussing "discharge planning." Pt refused to attend, and was irritable when SW encouraged pt to attend. Pt is not appropriate for group at this time. Pt is cognitively impaired and unable to engage conversation. Pt does not answer questions and maintain eye contact. Addendum: 08/18/19 at 1544 by DOMINGO SANDERS ERROR
--- NOTE | 2019-08-18 15:44 | NUR ---
GROUP NOTE: SW encouraged pt to attend group on this present day discussing "mood-regulation." Pt refused to attend, and was irritable when SW encouraged pt to attend. Pt is not appropriate for group at this time. Pt is cognitively impaired and unable to engage conversation. Pt does not answer questions and maintain eye contact.
[2019-08-18 16:00] VITALS: BP 147/74
[2019-08-18] MEDS: INSULIN REGULAR, HUMAN 100 UNIT/ML 3 ML VIAL SQ PRN (18:01)
--- NOTE | 2019-08-18 20:00 | NUR ---
GPS RN OPENING NOTE: RECEIVED PATIENT ASLEEP IN BED, ARAUSABLE TO VERBAL AND TACTILE STIMULI, ALERT AND ORIENTED X 1, CALM, DEPRESSED MOOD, CONFUSED, ANXIOUS, DISORGANIZED, NO AGITATION NOTED, DENIES SI/HI, NO SOB, NO ACUTE DISTRESS, BREATHING EVEN AND UNLABORED, NO S/S OF PAIN AND DISCOMFORT, WILL CONTINUE TO MONITOR Q15 MINS FOR SAFETY
[2019-08-18 20:54] VITALS: BP 128/88
[2019-08-18] MEDS ORDERED: QUETIAPINE FUMARATE 25 MG TABLET PO SCH (22:00)
[2019-08-18] MEDS: SENNOSIDES 8.6 MG TABLET PO SCH (22:34)
[2019-08-18] MEDS: ATORVASTATIN 10 MG TABLET PO SCH (22:34)
[2019-08-19] MEDS: BLOOD SUGAR DIAGNOSTIC 1 EACH STRIP IN SCH ×4 (07:30→22:14)
[2019-08-19 08:00] VITALS: BP 114/67
[2019-08-19] MEDS: ESCITALOPRAM OXALATE (10 MG) 10 MG TABLET PO SCH (09:22)
[2019-08-19] MEDS: DIGOXIN 0.125 MG TABLET PO SCH (09:24)
[2019-08-19] MEDS: DOCUSATE SODIUM 100 MG CAPSULE PO SCH ×2 (09:24→17:47)
[2019-08-19] MEDS: ASCORBIC ACID 500 MG TABLET PO SCH (09:25)
[2019-08-19] MEDS: METOPROLOL TARTRATE 25 MG TABLET PO SCH ×2 (09:25→17:48)
[2019-08-19] MEDS: CALCIUM CARB 250MG /VITAMIN D 1 UDTAB PO SCH (09:25)
[2019-08-19] MEDS: MAGNESIUM OXIDE 400 MG TABLET PO SCH ×2 (09:25→17:48)
[2019-08-19] MEDS: SPIRONOLACTONE 25 MG TABLET PO SCH (09:25)
[2019-08-19] MEDS: APIXABAN 2.5 MG TABLET PO SCH ×2 (09:26→17:49)
[2019-08-19] MEDS: FUROSEMIDE 20 MG TABLET PO SCH (09:27)
[2019-08-19] MEDS: LEVOTHYROXINE SODIUM 112 MCG TABLET PO SCH (09:28)
[2019-08-19] MEDS: POLYVINYL ALCOHOL 15 ML BOTTLE EACHEYE SCH ×3 (09:28→17:49)
[2019-08-19] MEDS: GLUCERNA SHAKE 237 ML CAN PO SCH (09:29)
[2019-08-19] MEDS: Z GUARD REMEDY 2 OZ OINT TP SCH (09:30)
[2019-08-19] MEDS: [UNRECOGNIZED DRUG - OTHER] TP SCH (09:30)
[2019-08-19] MEDS: ACETAMINOPHEN 325 MG TABLET PO SCH (09:45)
[2019-08-19 16:00] VITALS: BP 118/69
--- NOTE | 2019-08-19 21:40 | NUR ---
GPS RN OPENING NOTE: PATIENT AWAKE, CONFUSED, DEPRESSED MOOD, DISORGANIZED, NO AGITATION AT THIS TIME, NO SOB, NO ACUTE DISTRESS, BREATHING EVEN AND UNLABORED, NO S/S OF PAIN AND DISCOMFORT, KEPT CLEAN, DRY AND COMFORTABLE, WILL CONTINUE TO MONITOR Q15 MINS FOR SAFETY
[2019-08-19] MEDS: SENNOSIDES 8.6 MG TABLET PO SCH (22:14)
[2019-08-19] MEDS: QUETIAPINE FUMARATE 25 MG TABLET PO SCH (22:14)
[2019-08-19] MEDS: ATORVASTATIN 10 MG TABLET PO SCH (22:14)
[2019-08-19 23:24] VITALS: BP 149/82
[2019-08-20] MEDS: LEVOTHYROXINE SODIUM 112 MCG TABLET PO SCH (07:30)
[2019-08-20] MEDS: BLOOD SUGAR DIAGNOSTIC 1 EACH STRIP IN SCH ×5 (07:57→22:48)
[2019-08-20] MEDS: INSULIN REGULAR, HUMAN 100 UNIT/ML 3 ML VIAL SQ PRN ×4 (07:58→22:51)
[2019-08-20 08:00] VITALS: BP 100/77
[2019-08-20] MEDS: Z GUARD REMEDY 2 OZ OINT TP SCH (08:28)
[2019-08-20] MEDS: METOPROLOL TARTRATE 25 MG TABLET PO SCH ×2 (09:00→16:41)
[2019-08-20] MEDS: MAGNESIUM OXIDE 400 MG TABLET PO SCH ×2 (09:06→16:52)
[2019-08-20] MEDS: DOCUSATE SODIUM 100 MG CAPSULE PO SCH ×2 (09:07→16:41)
[2019-08-20] MEDS: SPIRONOLACTONE 25 MG TABLET PO SCH (09:07)
[2019-08-20] MEDS: FUROSEMIDE 20 MG TABLET PO SCH (09:07)
[2019-08-20] MEDS: ASCORBIC ACID 500 MG TABLET PO SCH (09:07)
[2019-08-20] MEDS: POLYVINYL ALCOHOL 15 ML BOTTLE EACHEYE SCH ×3 (09:08→16:40)
[2019-08-20] MEDS: ACETAMINOPHEN 325 MG TABLET PO SCH (09:12)
[2019-08-20] MEDS: CALCIUM CARB 250MG /VITAMIN D 1 UDTAB PO SCH (09:12)
[2019-08-20] MEDS: GLUCERNA SHAKE 237 ML CAN PO SCH (09:13)
[2019-08-20] MEDS: [UNRECOGNIZED DRUG - OTHER] TP SCH (09:13)
[2019-08-20] MEDS: APIXABAN 2.5 MG TABLET PO SCH ×2 (09:14→16:41)
--- NOTE | 2019-08-20 09:56 | NUR ---
Probable Cause Hearing Notification: SW contacted pts daughter Chante ([phone]) and informed her via voicemail that the pt is having a hearing today and explained what the hearing entails and the possible outcomes.
--- NOTE | 2019-08-20 13:50 | NUR ---
Group Note: SW invited the patient to attend group therapy on 08/20/2019 to discuss what they would like to see change as a result of their stay in [facility]. SW assessed the pt.'s ability to participate in therapy. The patient does not have the capacity to participate in group therapy as she has Dementia and is currently experiencing symptoms of severe confusion and agitation.
[2019-08-20 16:00] VITALS: BP 135/60
[2019-08-20] MEDS: MAG HYDROX/AL HYDROX/SIMETH 30 ML UDC PO PRN (18:27)
[2019-08-20] MEDS: LORAZEPAM 0.5 MG TABLET PO PRN (18:50)
[2019-08-20] MEDS: ACETAMINOPHEN 325 MG TABLET PO PRN (20:27)
[2019-08-20] MEDS: ATORVASTATIN 10 MG TABLET PO SCH (22:24)
[2019-08-20] MEDS: SENNOSIDES 8.6 MG TABLET PO SCH (22:24)
[2019-08-20] MEDS: QUETIAPINE FUMARATE 25 MG TABLET PO SCH (22:24)
[2019-08-21] MEDS: LORAZEPAM 0.5 MG TABLET PO PRN ×3 (01:16→21:22)
[2019-08-21] MEDS: ACETAMINOPHEN 325 MG TABLET PO PRN (02:41)
[2019-08-21] MEDS: BLOOD SUGAR DIAGNOSTIC 1 EACH STRIP IN SCH ×4 (07:35→22:00)
[2019-08-21 08:00] VITALS: BP 124/99
[2019-08-21] MEDS: LEVOTHYROXINE SODIUM 112 MCG TABLET PO SCH (08:20)
[2019-08-21] MEDS: ACETAMINOPHEN 325 MG TABLET PO SCH (09:02)
[2019-08-21] MEDS: FUROSEMIDE 20 MG TABLET PO SCH (09:02)
[2019-08-21] MEDS: MAGNESIUM OXIDE 400 MG TABLET PO SCH ×2 (09:02→17:00)
[2019-08-21] MEDS: SPIRONOLACTONE 25 MG TABLET PO SCH (09:02)
[2019-08-21] MEDS: CALCIUM CARB 250MG /VITAMIN D 1 UDTAB PO SCH (09:02)
[2019-08-21] MEDS: ASCORBIC ACID 500 MG TABLET PO SCH (09:02)
[2019-08-21] MEDS: METOPROLOL TARTRATE 25 MG TABLET PO SCH ×2 (09:02→17:00)
[2019-08-21] MEDS: DOCUSATE SODIUM 100 MG CAPSULE PO SCH ×2 (09:02→17:00)
[2019-08-21] MEDS: DIGOXIN 0.125 MG TABLET PO SCH (09:02)
[2019-08-21] MEDS: APIXABAN 2.5 MG TABLET PO SCH ×2 (09:05→17:00)
[2019-08-21] MEDS: POLYVINYL ALCOHOL 15 ML BOTTLE EACHEYE SCH ×3 (09:14→17:00)
[2019-08-21] MEDS: GLUCERNA SHAKE 237 ML CAN PO SCH (09:14)
[2019-08-21] MEDS: [UNRECOGNIZED DRUG - OTHER] TP SCH (09:15)
--- NOTE | 2019-08-21 09:26 | NUR ---
GPS RN OPENING NOTE: PATIENT IS AOX1. UNABLE TO VERBALIZE. RESTING IN BED WITH 2 SIDE RAILS UP. PATIENT ATE 25% FOR BREAKFAST AND TOOK HER MEDICATIONS. PATIENT HAS LOUD RESPIRATIONS AND BREATHES THROUGH HER MOUTH. SWALLOWING/ASPIRATIONS PRECAUTIONS IN PLACE. NEEDS ATTENDED TO. SAFETY PRECAUTIONS IN PLACE.WILL CONTINUE TO MONITOR Q15 FOR SAFETY, MOOD AND BEHAVIOR.
[2019-08-21] MEDS: Z GUARD REMEDY 2 OZ OINT TP SCH (09:41)
[2019-08-21] MEDS: QUETIAPINE FUMARATE 25 MG TABLET PO SCH ×3 (11:42→21:22)
[2019-08-21 16:00] VITALS: BP 115/55
--- NOTE | 2019-08-21 18:08 | NUR ---
GPS RN NOTE: PATIENT IS SLEEPING, AND NOT EASILY AROUSABLE. PATIENT SLEPT FOR ONLY 3 HOURS LAST NIGHT. UNABLE TO COMPLETE MED PASS
[2019-08-21 20:05] VITALS: BP 105/62
[2019-08-21] MEDS: SENNOSIDES 8.6 MG TABLET PO SCH (21:22)
[2019-08-21] MEDS: ATORVASTATIN 10 MG TABLET PO SCH (21:22)
[2019-08-22] MEDS: LEVOTHYROXINE SODIUM 112 MCG TABLET PO SCH (07:30)
[2019-08-22 08:00] VITALS: BP 139/52
[2019-08-22] MEDS: BLOOD SUGAR DIAGNOSTIC 1 EACH STRIP IN SCH ×4 (08:04→22:05)
[2019-08-22] MEDS: ASCORBIC ACID 500 MG TABLET PO SCH (08:42)
[2019-08-22] MEDS: QUETIAPINE FUMARATE 25 MG TABLET PO SCH ×2 (08:43→16:32)
[2019-08-22] MEDS: ACETAMINOPHEN 325 MG TABLET PO SCH (08:44)
[2019-08-22] MEDS: SPIRONOLACTONE 25 MG TABLET PO SCH (08:44)
[2019-08-22] MEDS: DIGOXIN 0.125 MG TABLET PO SCH (08:45)
[2019-08-22] MEDS: CALCIUM CARB 250MG /VITAMIN D 1 UDTAB PO SCH (08:45)
[2019-08-22] MEDS: MAGNESIUM OXIDE 400 MG TABLET PO SCH ×2 (08:45→16:32)
[2019-08-22] MEDS: METOPROLOL TARTRATE 25 MG TABLET PO SCH ×2 (08:47→16:32)
[2019-08-22] MEDS: APIXABAN 2.5 MG TABLET PO SCH ×2 (08:52→16:33)
[2019-08-22] MEDS: FUROSEMIDE 20 MG TABLET PO SCH (08:54)
[2019-08-22] MEDS: [UNRECOGNIZED DRUG - OTHER] TP SCH (08:55)
[2019-08-22] MEDS: POLYVINYL ALCOHOL 15 ML BOTTLE EACHEYE SCH ×3 (08:55→16:36)
[2019-08-22] MEDS: DOCUSATE SODIUM 100 MG CAPSULE PO SCH ×2 (08:55→17:00)
[2019-08-22] MEDS: GLUCERNA SHAKE 237 ML CAN PO SCH (09:00)
[2019-08-22] MEDS: Z GUARD REMEDY 2 OZ OINT TP SCH (09:36)
[2019-08-22] MEDS: LORAZEPAM 0.5 MG TABLET PO PRN ×2 (12:23→23:33)
--- NOTE | 2019-08-22 15:57 | NUR ---
GROUP NOTE: SW encouraged pt to attend group on this present day discussing "suicidal ideation." Pt was asleep and was not easily aroused. Pt has Dementia and is mute. Pt is not appropriate for group.
[2019-08-22 16:00] VITALS: BP 156/99
[2019-08-22] MEDS: ACETAMINOPHEN 325 MG TABLET PO PRN (18:58)
[2019-08-22] MEDS: MAG HYDROX/AL HYDROX/SIMETH 30 ML UDC PO PRN (19:12)
[2019-08-22 20:19] VITALS: BP 126/62
[2019-08-22] MEDS: SENNOSIDES 8.6 MG TABLET PO SCH (21:04)
[2019-08-22] MEDS: ATORVASTATIN 10 MG TABLET PO SCH (21:04)
[2019-08-22] MEDS ORDERED: QUETIAPINE FUMARATE 25 MG TABLET PO SCH (22:00)
--- NOTE | 2019-08-22 23:34 | NUR ---
GPS NURSING NOTE: ANXIETY ADMINISTERED ATIVAN 0.5MG PO FOR ANXIETY. WILL CONTINUE TO MONITOR FOR PT'S SAFETY.
[2019-08-23] MEDS: ACETAMINOPHEN 325 MG TABLET PO PRN (03:10)
--- NOTE | 2019-08-23 07:30 | NUR ---
received pt. in am restless,no acute distress.vs stable.med compliant.alert and oriented x1.twisting about in bed,needing repositiong freq.
[2019-08-23 08:00] VITALS: BP 110/68
[2019-08-23] MEDS: BLOOD SUGAR DIAGNOSTIC 1 EACH STRIP IN SCH ×4 (08:47→22:12)
[2019-08-23] MEDS: METOPROLOL TARTRATE 25 MG TABLET PO SCH ×2 (09:00→17:00)
[2019-08-23] MEDS: SPIRONOLACTONE 25 MG TABLET PO SCH (09:00)
[2019-08-23] MEDS: CALCIUM CARB 250MG /VITAMIN D 1 UDTAB PO SCH (10:38)
[2019-08-23] MEDS: [UNRECOGNIZED DRUG - OTHER] TP SCH (10:38)
[2019-08-23] MEDS: QUETIAPINE FUMARATE 25 MG TABLET PO SCH ×2 (10:39→18:15)
[2019-08-23] MEDS: FUROSEMIDE 20 MG TABLET PO SCH (10:39)
[2019-08-23] MEDS: MAGNESIUM OXIDE 400 MG TABLET PO SCH ×2 (10:39→18:13)
[2019-08-23] MEDS: ASCORBIC ACID 500 MG TABLET PO SCH (10:39)
[2019-08-23] MEDS: DOCUSATE SODIUM 100 MG CAPSULE PO SCH ×2 (10:39→18:14)
[2019-08-23] MEDS: POLYVINYL ALCOHOL 15 ML BOTTLE EACHEYE SCH ×3 (10:40→18:16)
[2019-08-23] MEDS: GLUCERNA SHAKE 237 ML CAN PO SCH (10:41)
[2019-08-23] MEDS: APIXABAN 2.5 MG TABLET PO SCH ×2 (10:43→18:14)
--- NOTE | 2019-08-23 11:30 | NUR ---
rn in to rm.constantly repositioning pt.
[2019-08-23] MEDS: ACETAMINOPHEN 325 MG TABLET PO SCH (11:54)
[2019-08-23] MEDS: LEVOTHYROXINE SODIUM 112 MCG TABLET PO SCH (11:54)
[2019-08-23] MEDS: Z GUARD REMEDY 2 OZ OINT TP SCH (13:30)
[2019-08-23 16:00] VITALS: BP 100/64
--- NOTE | 2019-08-23 18:35 | NUR ---
dtr. calling often,given status report.
[2019-08-23 21:05] VITALS: BP 111/59
[2019-08-23] MEDS: ATORVASTATIN 10 MG TABLET PO SCH (22:04)
[2019-08-23] MEDS: SENNOSIDES 8.6 MG TABLET PO SCH (22:04)
[2019-08-23] MEDS: QUETIAPINE FUMARATE 100 MG TABLET PO SCH (22:04)
[2019-08-23] MEDS: INSULIN REGULAR, HUMAN 100 UNIT/ML 3 ML VIAL SQ PRN (22:13)
[2019-08-24] MEDS: BLOOD SUGAR DIAGNOSTIC 1 EACH STRIP IN SCH ×4 (07:40→22:08)
[2019-08-24 08:00] VITALS: BP 110/59
[2019-08-24] MEDS: CALCIUM CARB 250MG /VITAMIN D 1 UDTAB PO SCH (08:03)
[2019-08-24] MEDS: DOCUSATE SODIUM 100 MG CAPSULE PO SCH ×2 (08:03→16:01)
[2019-08-24] MEDS: ACETAMINOPHEN 325 MG TABLET PO SCH (08:03)
[2019-08-24] MEDS: MAGNESIUM OXIDE 400 MG TABLET PO SCH ×2 (08:03→16:02)
[2019-08-24] MEDS: ASCORBIC ACID 500 MG TABLET PO SCH (08:04)
[2019-08-24] MEDS: DIGOXIN 0.125 MG TABLET PO SCH (08:04)
[2019-08-24] MEDS: LEVOTHYROXINE SODIUM 112 MCG TABLET PO SCH (08:04)
[2019-08-24] MEDS: APIXABAN 2.5 MG TABLET PO SCH ×2 (08:04→16:03)
[2019-08-24] MEDS: QUETIAPINE FUMARATE 25 MG TABLET PO SCH ×2 (08:04→16:01)
[2019-08-24] MEDS: METOPROLOL TARTRATE 25 MG TABLET PO SCH ×2 (08:05→16:01)
[2019-08-24] MEDS: FUROSEMIDE 20 MG TABLET PO SCH (08:05)
[2019-08-24] MEDS: GLUCERNA SHAKE 237 ML CAN PO SCH (08:06)
[2019-08-24] MEDS: Z GUARD REMEDY 2 OZ OINT TP SCH (08:09)
[2019-08-24] MEDS: POLYVINYL ALCOHOL 15 ML BOTTLE EACHEYE SCH ×3 (08:09→16:25)
[2019-08-24] MEDS: [UNRECOGNIZED DRUG - OTHER] TP SCH (08:12)
[2019-08-24] MEDS: SPIRONOLACTONE 25 MG TABLET PO SCH (08:12)
--- NOTE | 2019-08-24 09:20 | NUR ---
GPS RN NOTE: PT. IN BED,AWAKE RESTING, MEDICATIONS COMPLIANT EAT BREAKFAST PT CONFUSED,VS STABLE,NO ACUTE DISTRESS COOPERATIVE,RESTLESS AT TIMES WILL MONITOR Q 15 MINUTES FOR SAFETY AND BEHAVIOR.
[2019-08-24 16:01] VITALS: BP 115/68
[2019-08-24 20:04] VITALS: BP 131/84
[2019-08-24] MEDS: QUETIAPINE FUMARATE 100 MG TABLET PO SCH (22:00)
[2019-08-24] MEDS: ATORVASTATIN 10 MG TABLET PO SCH (22:00)
[2019-08-24] MEDS: SENNOSIDES 8.6 MG TABLET PO SCH (22:00)
[2019-08-24] MEDS: INSULIN REGULAR, HUMAN 100 UNIT/ML 3 ML VIAL SQ PRN (22:19)
[2019-08-25] MEDS: LEVOTHYROXINE SODIUM 112 MCG TABLET PO SCH (07:30)
[2019-08-25 07:40] LABS: CALCIUM, SERUM 8.8 mg/dL (8.5-10.1); POTASSIUM 3.9 mmol/L (3.5-5.1)
[2019-08-25 08:00] VITALS: BP 119/64
[2019-08-25] MEDS: BLOOD SUGAR DIAGNOSTIC 1 EACH STRIP IN SCH ×4 (08:09→22:56)
[2019-08-25] MEDS: Z GUARD REMEDY 2 OZ OINT TP SCH (08:09)
[2019-08-25] MEDS: POLYVINYL ALCOHOL 15 ML BOTTLE EACHEYE SCH ×3 (08:09→17:37)
[2019-08-25] MEDS: [UNRECOGNIZED DRUG - OTHER] TP SCH (08:09)
[2019-08-25] MEDS: ASCORBIC ACID 500 MG TABLET PO SCH (08:38)
[2019-08-25] MEDS: DOCUSATE SODIUM 100 MG CAPSULE PO SCH ×2 (08:38→17:37)
[2019-08-25] MEDS: SPIRONOLACTONE 25 MG TABLET PO SCH (08:38)
[2019-08-25] MEDS: FUROSEMIDE 20 MG TABLET PO SCH (08:39)
[2019-08-25] MEDS: ACETAMINOPHEN 325 MG TABLET PO SCH (08:39)
[2019-08-25] MEDS: MAGNESIUM OXIDE 400 MG TABLET PO SCH ×2 (08:39→17:33)
[2019-08-25] MEDS: APIXABAN 2.5 MG TABLET PO SCH ×2 (08:40→17:34)
[2019-08-25] MEDS: QUETIAPINE FUMARATE 25 MG TABLET PO SCH ×2 (08:41→17:35)
[2019-08-25] MEDS: METOPROLOL TARTRATE 25 MG TABLET PO SCH ×2 (08:41→17:00)
[2019-08-25] MEDS: DIGOXIN 0.125 MG TABLET PO SCH (08:42)
[2019-08-25] MEDS: CALCIUM CARB 250MG /VITAMIN D 1 UDTAB PO SCH (08:42)
[2019-08-25] MEDS: GLUCERNA SHAKE 237 ML CAN PO SCH (08:46)
--- NOTE | 2019-08-25 10:27 | NUR ---
FACILITY CONTACT: TOMMY contacted [facility] Address: [address] [place] [address] and spoke with Catie, recruiter coordinator to inform her pt will be discharged tomorrow. Catie agreed and requested clinicals be faxed to . Addendum: 08/25/19 at 1037 by DOMINGO SANDERS Clinicals have been faxed on this present day.
[2019-08-25 16:00] VITALS: BP 104/52
[2019-08-25] MEDS: INSULIN REGULAR, HUMAN 100 UNIT/ML 3 ML VIAL SQ PRN ×2 (16:50→23:01)
[2019-08-25 20:46] VITALS: BP 110/65
[2019-08-25] MEDS: ATORVASTATIN 10 MG TABLET PO SCH (22:27)
[2019-08-25] MEDS: QUETIAPINE FUMARATE 100 MG TABLET PO SCH (22:27)
[2019-08-25] MEDS: SENNOSIDES 8.6 MG TABLET PO SCH (22:27)
[2019-08-25] MEDS: LORAZEPAM 0.5 MG TABLET PO PRN (22:57)
[2019-08-26] MEDS: BLOOD SUGAR DIAGNOSTIC 1 EACH STRIP IN SCH ×2 (07:19→12:31)
--- NOTE | 2019-08-26 07:20 | NUR ---
RN NOTE: ACCUCHECK 111 WITH NO SLIDING SCALE COVERAGE
[2019-08-26] MEDS: LEVOTHYROXINE SODIUM 112 MCG TABLET PO SCH (07:33)
[2019-08-26 08:00] VITALS: BP 144/67
[2019-08-26] MEDS: POLYVINYL ALCOHOL 15 ML BOTTLE EACHEYE SCH ×2 (09:22→12:50)
[2019-08-26] MEDS: SPIRONOLACTONE 25 MG TABLET PO SCH (09:23)
[2019-08-26] MEDS: CALCIUM CARB 250MG /VITAMIN D 1 UDTAB PO SCH (09:23)
[2019-08-26] MEDS: ACETAMINOPHEN 325 MG TABLET PO SCH (09:23)
[2019-08-26] MEDS: DIGOXIN 0.125 MG TABLET PO SCH (09:23)
[2019-08-26] MEDS: QUETIAPINE FUMARATE 25 MG TABLET PO SCH (09:23)
[2019-08-26] MEDS: ASCORBIC ACID 500 MG TABLET PO SCH (09:24)
[2019-08-26] MEDS: MAGNESIUM OXIDE 400 MG TABLET PO SCH (09:24)
[2019-08-26] MEDS: DOCUSATE SODIUM 100 MG CAPSULE PO SCH (09:24)
[2019-08-26] MEDS: APIXABAN 2.5 MG TABLET PO SCH (09:24)
[2019-08-26] MEDS: FUROSEMIDE 20 MG TABLET PO SCH (09:24)
[2019-08-26 09:28] VITALS: BP 114/67
[2019-08-26] MEDS: METOPROLOL TARTRATE 25 MG TABLET PO SCH (09:28)
[2019-08-26] MEDS: Z GUARD REMEDY 2 OZ OINT TP SCH (09:29)
[2019-08-26] MEDS: [UNRECOGNIZED DRUG - OTHER] TP SCH (09:30)
[2019-08-26] MEDS: GLUCERNA SHAKE 237 ML CAN PO SCH (09:30)
--- NOTE | 2019-08-26 11:08 | NUR ---
RN NOTE: REPORT CALLED TO [facility]. SPOKE WITH MANE DELGADO.
--- NOTE | 2019-08-26 11:54 | NUR ---
DISCHARGE NOTE: Pt will be discharged at 12:30pm via [facility] to [facility] Address: [address] [place] [address] . Pts daughter Chante [phone] has been notified via voicemail. Pts mood is dysphoric with congruent affect. Pt denied visual/auditory hallucinations. Pt will be under the care of Psychiatrist: Dr. Ana Zhang Address: [address] [address] and Rubber Stamp Maker: Dr. Lisa Dwyer Address: [address] [address] . The multidisciplinary exit care form was done, printed, signed, and given to the patient.
--- NOTE | 2019-08-26 12:31 | NUR ---
RN NOTE: ACCUCHECK 101. NO INSULIN COVERAGE
--- NOTE | 2019-08-26 13:50 | NUR ---
HARBOR ENGINEER NOTE: 83 YEAR OLD FEMALE DISCHARGED TO [facility] IN STABLE CONDITION. COMPLIANT WITH MEDICATIONS, COOPERATIVE WITH TREATMENT PLANS, PATIENT DENIES SI/HI AND INSTRUCTED TO GO TO THE CLOSEST ER IF DEVELOPING SI/HI. BEHAVIOR IMPROVED, PSYCHIATRIC TREATMENT PLANS MET, MEDICAL TREATMENT PLANS DEREFFED FOR CONTINUAL MONITORING. EDUCATED PT ABOUT AFTER CARE PLAN AND COPY PROVIDED. PERSONAL BELONINGS RETURNED TO PT. MEDICATIONS RECONCILED WITH DR. ACUÑA AND SKYE CASTRO. REPORT GIVEN TO MANE DELGADO AT [facility]. PT UNABLE TO SIGN DISCHARGE PAPERWORK. WOUND PICTURES TAKEN AND DOCUMENTED IN CHART. PT LEFT THE UNIT AT 13:50 VIA GURNEY WITH EMS.
== END 2019-08-26 13:50 | DRG 885 ==
LOC: GPS 16:45
PROVIDERS: ADMIT Psychiatry & Neurology Psychiatry; ATTEND Family Medicine
DX: F29 Unspecified psychosis not due to a substance or known physiological condition (principal); N17.0 Acute kidney failure with tubular necrosis; I11.0 Hypertensive heart disease with heart failure; G93.41 Metabolic encephalopathy; E44.0 Moderate protein-calorie malnutrition; F03.91 Unspecified dementia, unspecified severity, with behavioral disturbance; F32.3 Major depressive disorder, single episode, severe with psychotic features; D68.69 Other thrombophilia; E03.9 Hypothyroidism, unspecified; F41.9 Anxiety disorder, unspecified; D63.8 Anemia in other chronic diseases classified elsewhere; E66.01 Morbid (severe) obesity due to excess calories; E88.09 Other disorders of plasma-protein metabolism, not elsewhere classified; E87.6 Hypokalemia; I25.10 Atherosclerotic heart disease of native coronary artery without angina pectoris; Z66 Do not resuscitate; M19.90 Unspecified osteoarthritis, unspecified site; Z73.6 Limitation of activities due to disability; I50.9 Heart failure, unspecified; I48.91 Unspecified atrial fibrillation; E11.9 Type 2 diabetes mellitus without complications; Z68.24 Body mass index [BMI] 24.0-24.9, adult
CPT/HCPCS: 36415; 70450-TC; 73120-TC; 80048-TC; 80053-TC; 80061-TC; 80162-TC; 80164-TC; 82962-TC; 85025-TC; 87081-TC; 92611-TC; 97530-TC; J1815